=== PATIENT | male | born 1955 | race Caucasian/White ===

== ENCOUNTER 2020-11-30 10:30 | Emergency (ER) | payer MEDICARE, OTHER ==
[~2020-11-30] VITALS: Ht 188 cm; Wt 88.5 kg
[2020-11-30] MEDS ORDERED: LEVOTHYROXINE175 MC1 PO (10:57)
== END 2020-11-30 10:47 | disposition home or self-care (01) ==
LOC: ED 10:30
DX: S56.011A Strain of flexor muscle, fascia and tendon of right thumb at forearm level, initial encounter (principal); W01.0XXA Fall on same level from slipping, tripping and stumbling without subsequent striking against object, initial encounter; E03.9 Hypothyroidism, unspecified; Z79.899 Other long term (current) drug therapy
CPT/HCPCS: 73140; 99283-25